=== PATIENT | male | born 1975 | race Hispanic/Latino ===

== ENCOUNTER 2017-08-30 20:03 | Observation (INO) | payer OTHER ==
[2017-08-30] MEDS ORDERED: Nitroglycerin 2% Ointment Foilpak UD TOP STA (21:05)
[2017-08-30] MEDS ORDERED: Nitroglycerin 2% Ointment Foilpak UD TOP ONE (21:12)
--- NOTE | 2017-08-30 21:16 | ED PDOC ---
HPI: Chest Pain Time Seen by Provider: 08/30/17 20:15 Chief Complaint (Nursing): Chest Pain Chief Complaint (Provider): Chest Pain History Per: Patient History/Exam Limitations: no limitations Onset/Duration Of Symptoms: Days (x 1) Current Symptoms Are (Timing): Still Present Additional Complaint(s): is a 42 y/o male with a history of sleep apnea who presents to the ED complaining of left sided, pressure-like chest pain and tightness with associated pain radiating to left arm since yesterday. Patient describes the arm pain as tightness. He denies numbness, shortness of breath, or leg swelling. Patient states the pain got worse over the course of the day. He also had URI symptoms around [place] time that resolved on their own after about 5 days. PMD: None (Uses [facility]) Past Medical History Reviewed: Historical Data, Nursing Documentation, Vital Signs Vital Signs: Last Vital Signs Temp 98.5 F 08/31/17 12:17 Pulse 62 08/31/17 12:17 Resp 14 08/31/17 12:17 BP 131/79 08/31/17 12:17 Pulse Ox 98 08/31/17 12:17 - Medical History PMH: Sleep Apnea Denies: Chronic Kidney Disease - Surgical History Surgical History: No Surg Hx - Family History Family History: States: Hypertension - Social History Current smoker - smoking cessation education provided: No Alcohol: Occasional Drugs: Denies - Home Medications Home Medications: Ambulatory Orders Medication Instructions Recorded No Known Home Med 08/30/17 - Allergies Allergies/Adverse Reactions: Allergies Allergy/AdvReac Type Severity Reaction Status Date / Time No Known Allergies Allergy Verified 08/30/17 20:12 Review of Systems ROS Statement: Except As Marked, All Systems Reviewed And Found Negative Cardiovascular: Positive for: Chest Pain (left sided, pressure-like, tightness with radiation) Respiratory: Negative for: Shortness of Breath Musculoskeletal: Negative for: Leg Pain (swelling) Neurological: Negative for: Numbness Physical Exam - Reviewed Nursing Documentation Reviewed: Yes Vital Signs Reviewed: Yes - Physical Exam Appears: Positive for: Non-toxic, In Acute Distress Head Exam: Positive for: ATRAUMATIC, NORMOCEPHALIC Skin: Positive for: Warm, Dry Eye Exam: Positive for: EOMI, PERRL ENT: Negative for: Pharyngeal Erythema, Tonsillar Exudate Neck: Positive for: Painless ROM, Supple Cardiovascular/Chest: Positive for: Regular Rate, Rhythm, Chest Non Tender. Negative for: Murmur Respiratory: Positive for: Normal Breath Sounds. Negative for: Wheezing Gastrointestinal/Abdominal: Positive for: Soft. Negative for: Tenderness Back: Positive for: Normal Inspection. Negative for: Decreased ROM Extremity: Positive for: Normal ROM. Negative for: Pedal Edema Lymphatic: Negative for: Adenopathy Neurologic/Psych: Positive for: Alert. Negative for: Motor/Sensory Deficits - Laboratory Results Result Diagrams: 08/31/17 07:38 08/31/17 07:38 - ECG O2 Sat by Pulse Oximetry: 95 (RA) Pulse Ox Interpretation: Normal - Radiology X-Ray: Interpreted by Me X-Ray Interpretation: No Acute Disease Medical Decision Making Medical Decision Making: Time: 9:03 Initial Impression: Chest pain, anginal quality Initial Plan: --Patient will be hospitalized to rule out acute coronary syndrome pending ER workup --B Type Natriuretic --CMP --Magnesium --Phosphorous --Troponin I Stat --Troponin I Q8H (x 2) --Urine Dip --D Dimer --PTT --Prothrombin Time --CBC --Chest XR --Ecotrin --Nitro --Contin[employer] Performance Specialist Initial labs and cxr unremarkable. Scribe Attestation: Documented by Blayne Persaud, acting as a scribe for Gayla Mary MD. Provider Scribe Attestation: All medical record entries made by the Scribe were at my direction and personally dictated by me. I have reviewed the chart and agree that the record accurately reflects my personal performance of the history, physical exam, medical decision making, and the department course for this patient. I have also personally directed, reviewed, and agree with the discharge instructions and disposition. Disposition - Clinical Impression Clinical Impression: Anginal pain Discussed With : Bobby Hayes Counseled Patient/Family Regarding: Studies Performed, Diagnosis - Disposition Disposition Time: 21:00 Condition: FAIR - Pt Status Changed To: Hospital Disposition Of: Observation - POA Present On Arrival: None
[2017-08-30 21:17] LABS: BASO # 0.1 K/uL (0.0-0.2); BASO % 0.6 % (0.0-2.0); EOS # 0.1 K/uL (0.0-0.7); EOS % 1.1 % (0.0-4.0); HEMOGLOBIN 13.7 g/dL (12.0-18.0); LYMPH # 3.7 K/uL (1.0-4.3); LYMPH % 33.2 % (20.0-40.0); MEAN CELL VOLUME 84.5 fl (80.0-94.0); MEAN CORPUSCULAR HEMOGLOBIN 26.9 pg (27.0-31.0); MEAN CORPUSCULAR HGB CONC 31.8 g/dL (33.0-37.0); MEAN PLATELET VOLUME 9.6 fl (7.2-11.7); MONO # 0.9 K/uL (0.0-0.8); MONO % 7.7 % (0.0-10.0); NEUT # 6.4 K/uL (1.8-7.0); NEUT % 57.4 % (50.0-75.0); NRBC % 0.1 % (0.0-0.0); RBC 5.09 Mil/uL (4.40-5.90); RED CELL DISTRIBUTION WIDTH 12.6 % (11.5-14.5); WHITE BLOOD COUNT 11.2 K/uL (4.8-10.8)
[2017-08-30 21:28] LABS: PARTIAL THROMBOPLASTIN TIME 32.2 Seconds (25.6-37.1); PROTHROMBIN TIME 11.2 Seconds (9.8-13.1)
[2017-08-30 22:02] LABS: ALB/GLOB RATIO 1.2 (1.0-2.1); ALBUMIN 4.1 g/dL (3.5-5.0); ALT/SGPT 46 U/L (21-72); AST/SGOT 29 U/L (17-59); BLOOD UREA NITROGEN 18 mg/dl (9-20); CALCIUM 9.3 mg/dL (8.4-10.2); GFR AFRICAN-AMERICAN > 60; GFR NON-AFRICAN AMERICAN > 60; MAGNESIUM 1.8 MG/DL (1.6-2.3)
[2017-08-31 08:06] LABS: BASO # 0.1 K/uL (0.0-0.2); BASO % 0.6 % (0.0-2.0); EOS # 0.1 K/uL (0.0-0.7); EOS % 1.5 % (0.0-4.0); HEMOGLOBIN 13.7 g/dL (12.0-18.0); LYMPH # 3.1 K/uL (1.0-4.3); LYMPH % 32.6 % (20.0-40.0); MEAN CELL VOLUME 84.6 fl (80.0-94.0); MEAN CORPUSCULAR HEMOGLOBIN 27.9 pg (27.0-31.0); MEAN PLATELET VOLUME 9.2 fl (7.2-11.7); MONO # 0.8 K/uL (0.0-0.8); MONO % 8.3 % (0.0-10.0); NEUT # 5.4 K/uL (1.8-7.0); NRBC % 0.1 % (0.0-0.0); RBC 4.9 Mil/uL (4.40-5.90); RED CELL DISTRIBUTION WIDTH 12.5 % (11.5-14.5); WHITE BLOOD COUNT 9.4 K/uL (4.8-10.8)
[2017-08-31 08:16] LABS: ALB/GLOB RATIO 1.1 (1.0-2.1); ALBUMIN 3.8 g/dL (3.5-5.0); ALT/SGPT 51 U/L (21-72); AST/SGOT 34 U/L (17-59); BLOOD UREA NITROGEN 16 mg/dl (9-20); CALCIUM 9.3 mg/dL (8.4-10.2); GFR AFRICAN-AMERICAN > 60; GFR NON-AFRICAN AMERICAN > 60
--- NOTE | 2017-08-31 09:35 | RAD ---
HISTORY: chest pain COMPARISON: No prior. TECHNIQUE: Chest PA and lateral FINDINGS: LUNGS: No active pulmonary disease. PLEURA: No significant pleural effusion identified. No pneumothorax apparent. CARDIOVASCULAR: Normal. OSSEOUS STRUCTURES: No significant abnormalities. VISUALIZED UPPER ABDOMEN: Normal. OTHER FINDINGS: None. IMPRESSION: No active disease.
--- NOTE | 2017-08-31 10:52 | CP.PCM.HP ---
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 no f/c, n/v/d. no cough/congestion, trops neg x 2. cardio consult pending. minimal pain at present. Present on Admission - Present on Admission Any Indicators Present on Admission: No Review of Systems - Cardiovascular Cardiovascular: As Per HPI, Chest Pain Past Patient History - Past Medical History & Family History Past Medical History?: Yes - Past Social History Smoking Status: Never Smoked - CARDIAC Hx Cardiac Disorders: No - PULMONARY Hx Sleep Apnea: Yes - NEUROLOGICAL Hx Neurological Disorder: No - HEENT Hx HEENT Problems: No - RENAL Hx Chronic Kidney Disease: No - ENDOCRINE/METABOLIC Hx Endocrine Disorders: No - HEMATOLOGICAL/ONCOLOGICAL Hx Blood Disorders: No Hx AIDS: No Hx Human Immunodeficiency Virus (HIV): No - INTEGUMENTARY Hx Dermatological Problems: No - MUSCULOSKELETAL/RHEUMATOLOGICAL Hx Musculoskeletal Disorders: No Hx Falls: No - GASTROINTESTINAL Hx Gastrointestinal Disorders: No - GENITOURINARY/GYNECOLOGICAL Hx Genitourinary Disorders: No - PSYCHIATRIC Hx Substance Use: No - SURGICAL HISTORY Hx Surgeries: No - ANESTHESIA Hx Anesthesia: No Meds Allergies/Adverse Reactions: Allergies Allergy/AdvReac Type Severity Reaction Status Date / Time No Known Allergies Allergy Verified 08/30/17 20:12 Physical Exam - Constitutional Appears: Well, Non-toxic, No Acute Distress - Head Exam Head Exam: ATRAUMATIC, NORMAL INSPECTION, NORMOCEPHALIC - Eye Exam Eye Exam: EOMI, Normal appearance, PERRL Pupil Exam: NORMAL ACCOMODATION, PERRL - ENT Exam ENT Exam: Mucous Membranes Moist, Normal Exam - Neck Exam Neck exam: Positive for: Normal Inspection - Respiratory Exam Respiratory Exam: Clear to Auscultation Bilateral, NORMAL BREATHING PATTERN - Cardiovascular Exam Cardiovascular Exam: REGULAR RHYTHM, RRR, +S1, +S2 - GI/Abdominal Exam GI & Abdominal Exam: Normal Bowel Sounds, Soft. absent: Tenderness - Extremities Exam Extremities exam: Positive for: full ROM, normal capillary refill, normal inspection, pedal pulses present - Back Exam Back exam: NORMAL INSPECTION - Neurological Exam Neurological exam: Alert, CN II-XII Intact, Normal Gait, Oriented x3, Reflexes Normal - Psychiatric Exam Psychiatric exam: Normal Affect, Normal Mood - Skin Skin Exam: Dry, Intact, Normal Color, Warm Results - Vital Signs Recent Vital Signs: Last Vital Signs Temp 98.2 F 08/31/17 07:59 Pulse 68 08/31/17 09:00 Resp 14 08/31/17 07:59 BP 131/80 08/31/17 07:59 Pulse Ox 99 08/31/17 07:59 - Labs Result Diagrams: 08/31/17 07:38 08/31/17 07:38 Labs: Laboratory Results - last 24 hr 08/30/17 08/30/17 08/30/17 21:12 21:12 21:12 WBC 11.2 H RBC 5.09 Hgb 13.7 Hct 43.0 MCV 84.5 MCH 26.9 L MCHC 31.8 L RDW 12.6 Plt Count 295 MPV 9.6 Neut % (Auto) 57.4 Lymph % (Auto) 33.2 [place] % (Auto) 7.7 Eos % (Auto) 1.1 Baso % (Auto) 0.6 Neut # 6.4 Lymph # 3.7 [place] # 0.9 H Eos # 0.1 Baso # 0.1 PT 11.2 INR 1.0 APTT 32.2 D-Dimer, Quantitative 141 Sodium 141 Potassium 3.9 Chloride 105 Carbon Dioxide 23 Anion Gap 17 BUN 18 Creatinine 1.0 Est GFR ( Amer) > 60 Est GFR (Non-Af Amer) > 60 Random Glucose 87 Calcium 9.3 Phosphorus 3.7 Magnesium 1.8 Total Bilirubin 0.6 AST 29 ALT 46 Alkaline Phosphatase 75 Troponin I < 0.0120 NT-Pro-B Natriuret Pep 30.0 Total Protein 7.5 Albumin 4.1 Globulin 3.5 Albumin/Globulin Ratio 1.2 08/31/17 08/31/17 07:38 07:38 WBC 9.4 RBC 4.90 Hgb 13.7 Hct 41.4 MCV 84.6 MCH 27.9 MCHC 33.0 RDW 12.5 Plt Count 269 MPV 9.2 Neut % (Auto) 57.0 Lymph % (Auto) 32.6 [place] % (Auto) 8.3 Eos % (Auto) 1.5 Baso % (Auto) 0.6 Neut # 5.4 Lymph # 3.1 [place] # 0.8 Eos # 0.1 Baso # 0.1 PT INR APTT D-Dimer, Quantitative Sodium 141 Potassium 3.9 Chloride 104 Carbon Dioxide 27 Anion Gap 14 BUN 16 Creatinine 1.0 Est GFR ( Amer) > 60 Est GFR (Non-Af Amer) > 60 Random Glucose 95 Calcium 9.3 Phosphorus Magnesium Total Bilirubin 0.9 AST 34 ALT 51 Alkaline Phosphatase 66 Troponin I < 0.0120 NT-Pro-B Natriuret Pep Total Protein 7.2 Albumin 3.8 Globulin 3.4 Albumin/Globulin Ratio 1.1 Assessment & Plan (1) Chest pain Assessment and Plan: trops x 3 cardio asa ?? muscular Status: Acute (2) DVT prophylaxis Assessment and Plan: scd nad ae hose ambulation lovenox if admitted over 24h Status: Acute
[2017-08-31 15:47] VITALS: BP 132/80; PULSE 73; RESP 18; TEMP 98.7; O2SAT 99
--- NOTE | 2017-08-31 16:54 | CP.PCM.CON ---
History of Present Illness - History of Present Illness History of Present Illness: Asked to see pt by Bobby Hayes NP for Chest pain x 1 day. Pt states he had chest soreness throughout his left chest which then began in his tricep area. He states that raising his left arm above head, turning his head to right, coughing, and taking deep breath caused pain in his chest. There was no associated palp, dyspnea, lh, dizziness, diaphoresis, n/v/d/c. His symptoms do not increase with ambulation or exertion. Pts ekg reveals no evidence of ischemia, trop are neg x 2. Pts pain has completely resolved. He has no cardiac risk factors. Review of Systems - Constitutional Constitutional: As Per HPI. absent: Anorexia, Chills, Daytime Sleepiness, Excessive Sweating, Fatigue, Fever, Frequent Falls, Headache, Increased Appetite , Lethargy, Malaise, Night Sweats, Snoring, Sleep Apnea, Weight Gain, Weight Loss, Weakness, Other - EENT Eyes: As Per HPI. absent: Blind Spots, Blurred Vision, Change in Vision, Decreased Night Vision, Diplopia, Discharge, Dry Eye, Exophthalmos, Floaters, Irritation, Itchy Eyes, Loss of Peripheral Vision, Pain, Photophobia, Requires Corrective Lenses, Sees Flashes, Spots in Vision, Tunnel Vision, Other Visual Disturbances, Loss of Vision, Other Ears: As Per HPI. absent: Decreased Hearing, Ear Discharge, Ear Pain, Tinnitus , Abnormal Hearing, Disequilibrium, Dizziness, Other Nose/Mouth/Throat: As Per HPI. absent: Epistaxis, Nasal Congestion, Nasal Discharge, Nasal Obstruction, Nasal Trauma, Nose Pain, Post Nasal Drip, Sinus Pain, Sinus Pressure, Bleeding Gums, Change in Voice, Dental Pain, Dry Mouth, Dysphagia, Halitosis, Hoarsness, Lip Swelling, Mouth Lesions, Mouth Pain, Odynophagia, Sore Throat, Throat Swelling, Tongue Swelling, Facial Pain, Neck Pain, Neck Mass, Other - Cardiovascular Cardiovascular: Chest Pain at Rest. absent: As Per HPI, Acrocyanosis, Chest Pain, Chest Pain with Activity, Claudication, Diaphoresis, Dyspnea, Dyspnea on Exertion, Edema, Irregular Heart Rhythm, Pain Radiating to Arm/Neck/Jaw, Leg Edema, Leg Ulcers, Lightheadedness, Orthopnea, Palpitations, Paroxysmal Nocturnal Dyspnea, Pedal Edema, Radiating Pain, Rapid Heart Rate, Slow Heart Rate, Syncope, Other - Respiratory Respiratory: As Per HPI. absent: Cough, Dyspnea, Hemoptysis, Dyspnea on Exertion, Wheezing, Snoring, Stridor, Pain on Inspiration, Chest Congestion, Excessive Mucous Production, Change in Mucous Color, Pain with Coughing, Other - Gastrointestinal Gastrointestinal: As Per HPI. absent: Abdominal Pain, Belching, Bloating, Change in Bowel Habits, Change in Stool Character, Coffee Ground Emesis, Constipation, Cramping, Diarrhea, Dyspepsia, Dysphagia, Early Satiety, Excessive Flatus, Fecal Incontinence, Heartburn, Hematemesis, Hematochezia, Loose Stools, Melena, Nausea, Odynophagia, Temesmus, Vomiting, Other - Genitourinary Genitourinary: As Per HPI. absent: Change in Urinary Stream, Difficulty Urinating, Dysuria, Flank Pain, Hematuria, Pyuria, Nocturia, Urinary Incontinence, Urinary Frequency, Urinary Hesitance, Urinary Urgency, Voiding Freq/Small Amts, Freq UTI, Hx Renal/Bladder Calculi, Hx /Renal Surgery, Bladder Distension, Other - Reproductive: Male Reproductive:Male: As Per HPI - Musculoskeletal Musculoskeletal: As Per HPI, Limited Range of Motion. absent: Abnormal Gait, Arthralgias, Atrophy, Back Pain, Deformity, Joint Swelling, Loss of Height, Muscle Cramps, Muscle Weakness, Myalgias, Neck Pain, Numbness, Radiating Pain into Limb, Stiffness, Tingling, Other - Integumentary Integumentary: As Per HPI. absent: Acne, Alopecia, Bleeding Lesions, Change in Hair, Change in Nails, Change in Pigmentation, Changing Lesions, Dry Skin, Erythema, Furuncle, Hirsutism, Lesions, New Lesions, Non-Healing Lesions, Photosensitivity, Pruritus, Rash, Skin Pain, Skin Ulcer, Sores, Striae, Swelling , Unusual Bruising, Wounds, Jaundice, Other - Neurological Neurological: As Per HPI. absent: Abnormal Gait, Abnormal Hearing, Abnormal Movements, Abnormal Speech, Behavioral Changes, Burning Sensations, Confusion, Convulsions, Disequilibrium, Dizziness, Numbness, Focal Weakness, Frequent Falls , Headaches, Lack of Coordination, Loss of Vision, Memory Loss, Paresthesias, Radicular Pain, Restless Legs, Sensory Deficit, Syncope, Tingling, Tremor, Vertigo, Weakness, Other Visual Disturbances, Other - Psychiatric Psychiatric: As Per HPI. absent: Abnormal Sleep Pattern, Anhedonia, Anxiety, Auditory Hallucinations, Behavioral Changes, Change in Appetite, Change in Libido, Confusion, Depression, Difficulty Concentrating, Hallucinations, Homicidal Ideation, Hopelessness, Irritability, Memory Loss, Mood Swings, Panic Attacks, Paranoia, Suicidal Ideation, Visual Hallucinations, Tactile Hallucinations, Other - Endocrine Endocrine: As Per HPI. absent: Change in Body Appearance, Change in Libido, Cold Intolorance, Deepening of Voice, Excessive Sweating, Fatigue, Flushing, Heat Intolorance, Increase in Ring/Shoe/Hat Size, Palpitations, Polydipsia, Polyphagia, Polyuria, Other - Hematologic/Lymphatic Hematologic: As Per HPI. absent: Easy Bleeding, Easy Bruising, Lymphadenopathy , Other Past Patient History - Infectious Disease Hx of Infectious Diseases: None - Tetanus Immunizations Tetanus Immunization: Unknown - Past Medical History & Family History Past Medical History?: Yes - Past Social History Smoking Status: Never Smoked Chewing Tobacco Use: No Cigar Use: No Alcohol: Occasional Drugs: Denies - CARDIAC Hx Cardiac Disorders: No - PULMONARY Hx Sleep Apnea: Yes - NEUROLOGICAL Hx Neurological Disorder: No - HEENT Hx HEENT Problems: No - RENAL Hx Chronic Kidney Disease: No - ENDOCRINE/METABOLIC Hx Endocrine Disorders: No - HEMATOLOGICAL/ONCOLOGICAL Hx Blood Disorders: No Hx AIDS: No Hx Human Immunodeficiency Virus (HIV): No - INTEGUMENTARY Hx Dermatological Problems: No - MUSCULOSKELETAL/RHEUMATOLOGICAL Hx Musculoskeletal Disorders: No Hx Falls: No - GASTROINTESTINAL Hx Gastrointestinal Disorders: No - GENITOURINARY/GYNECOLOGICAL Hx Genitourinary Disorders: No - PSYCHIATRIC Hx Substance Use: No - SURGICAL HISTORY Hx Surgeries: No - ANESTHESIA Hx Anesthesia: No Meds Allergies/Adverse Reactions: Allergies Allergy/AdvReac Type Severity Reaction Status Date / Time No Known Allergies Allergy Verified 08/30/17 20:12 - Medications Medications: Current Medications Aspirin (Aspirin Chewable) 81 mg PO DAILY [facility] Last Admin: 08/31/17 09:00 Dose: 81 mg Nitroglycerin (Nitrostat Sl Tab) 0.4 mg SL Q5M PRN PRN Reason: cp Physical Exam - Constitutional Appears: Well - Head Exam Head Exam: ATRAUMATIC, NORMAL INSPECTION, NORMOCEPHALIC - Eye Exam Eye Exam: EOMI, Normal appearance, PERRL. absent: Conjunctival injection, Nystagmus, Periorbital swelling, Periorbital tenderness, Scleral icterus Pupil Exam: NORMAL ACCOMODATION, PERRL. absent: Fixed, Irregular, Miosis, Mydriatic, Unequal - ENT Exam ENT Exam: Mucous Membranes Moist, Normal Exam. absent: Mucous Membranes Dry, Normal External Ear Exam, Normal Oropharynx, TM's Normal Bilaterally - Neck Exam Neck exam: Positive for: Normal Inspection. Negative for: Full Rom, Lymphadenopathy, Meningismus, Tenderness, Thyromegaly - Respiratory Exam Respiratory Exam: Clear to Auscultation Bilateral, NORMAL BREATHING PATTERN. absent: Accessory Muscle Use, Chest Wall Tenderness, Decreased Breath Sounds, Prolonged Expiratory Phase, Rales, Rhonchi, Wheezes, Respiratory Distress, Stridor - Cardiovascular Exam Cardiovascular Exam: REGULAR RHYTHM, +S1, +S2. absent: Bradycardia, Tachycardia , Clicks, Diastolic murmur, Gallop, Irregular Rhythm, JVD, RRR, Rubs, +S4, Systolic Murmur - GI/Abdominal Exam GI & Abdominal Exam: Normal Bowel Sounds, Soft. absent: Bruit, Diminished Bowel Sounds, Distended, Firm, Guarding, Hernia, Hyperactive Bowel Sounds, Hypoactive Bowel Sounds, Mass, Organomegaly, Pulsatile Mass, Rebound, Rigid, Tenderness - Rectal Exam Rectal Exam: Deferred - Extremities Exam Extremities exam: Positive for: calf tenderness, normal inspection. Negative for: full ROM, joint swelling, normal capillary refill, pedal edema, tenderness , pedal pulses present - Back Exam Back exam: NORMAL INSPECTION. absent: CVA tenderness (L), CVA tenderness (R), FULL ROM, muscle spasm, paraspinal tenderness, rash noted, tenderness, vertebral tenderness - Neurological Exam Neurological exam: Alert, CN II-XII Intact, Normal Gait, Oriented x3, Reflexes Normal - Psychiatric Exam Psychiatric exam: Normal Affect, Normal Mood - Skin Skin Exam: Dry, Intact, Normal Color, Warm Results - Vital Signs Recent Vital Signs: Last Vital Signs Temp 98.7 F 08/31/17 15:47 Pulse 73 08/31/17 15:47 Resp 18 08/31/17 15:47 BP 132/80 08/31/17 15:47 Pulse Ox 99 08/31/17 15:47 - Labs Result Diagrams: 08/31/17 07:38 08/31/17 07:38 Labs: Laboratory Results - last 24 hr 08/30/17 08/30/17 08/30/17 21:12 21:12 21:12 WBC 11.2 H RBC 5.09 Hgb 13.7 Hct 43.0 MCV 84.5 MCH 26.9 L MCHC 31.8 L RDW 12.6 Plt Count 295 MPV 9.6 Neut % (Auto) 57.4 Lymph % (Auto) 33.2 [place] % (Auto) 7.7 Eos % (Auto) 1.1 Baso % (Auto) 0.6 Neut # 6.4 Lymph # 3.7 [place] # 0.9 H Eos # 0.1 Baso # 0.1 PT 11.2 INR 1.0 APTT 32.2 D-Dimer, Quantitative 141 Sodium 141 Potassium 3.9 Chloride 105 Carbon Dioxide 23 Anion Gap 17 BUN 18 Creatinine 1.0 Est GFR ( Amer) > 60 Est GFR (Non-Af Amer) > 60 Random Glucose 87 Calcium 9.3 Phosphorus 3.7 Magnesium 1.8 Total Bilirubin 0.6 AST 29 ALT 46 Alkaline Phosphatase 75 Troponin I < 0.0120 NT-Pro-B Natriuret Pep 30.0 Total Protein 7.5 Albumin 4.1 Globulin 3.5 Albumin/Globulin Ratio 1.2 08/31/17 08/31/17 07:38 07:38 WBC 9.4 RBC 4.90 Hgb 13.7 Hct 41.4 MCV 84.6 MCH 27.9 MCHC 33.0 RDW 12.5 Plt Count 269 MPV 9.2 Neut % (Auto) 57.0 Lymph % (Auto) 32.6 [place] % (Auto) 8.3 Eos % (Auto) 1.5 Baso % (Auto) 0.6 Neut # 5.4 Lymph # 3.1 [place] # 0.8 Eos # 0.1 Baso # 0.1 PT INR APTT D-Dimer, Quantitative Sodium 141 Potassium 3.9 Chloride 104 Carbon Dioxide 27 Anion Gap 14 BUN 16 Creatinine 1.0 Est GFR ( Amer) > 60 Est GFR (Non-Af Amer) > 60 Random Glucose 95 Calcium 9.3 Phosphorus Magnesium Total Bilirubin 0.9 AST 34 ALT 51 Alkaline Phosphatase 66 Troponin I < 0.0120 NT-Pro-B Natriuret Pep Total Protein 7.2 Albumin 3.8 Globulin 3.4 Albumin/Globulin Ratio 1.1 - EKG Data EKG Interpreted by: Myself EKG shows normal: Sinus rhythm Rate: Normal Assessment & Plan (1) Musculoskeletal chest pain Status: Acute - Assessment and Plan (Free Text) Plan: BASED ON SYMPTOMS AND EXAC FACTORS PT LIKELY HAD MSK ETIOLOGY. NO RISK FACTORS , RULED OUT FOR VT, NO EKG CHANGES. PT MAY BE D/C TO F/U OUT PATIENT. 55 MIN TOTAL CARE TIME.
--- NOTE | 2017-08-31 19:37 | CP.PCM.DIS ---
Provider - Provider Date of Admission: 08/30/17 22:11 Attending physician: Bull Carey MD Time Spent in preparation of Discharge (in minutes): 15 Diagnosis - Discharge Diagnosis (1) Chest pain Status: Acute (2) DVT prophylaxis Status: Acute Hospital Course - Lab Results Lab Results: Most Recent Lab Values WBC 9.4 K/uL (4.8-10.8) 08/31/17 07:38 RBC 4.90 Mil/uL (4.40-5.90) 08/31/17 07:38 Hgb 13.7 g/dL (12.0-18.0) 08/31/17 07:38 Hct 41.4 % (35.0-51.0) 08/31/17 07:38 MCV 84.6 fl (80.0-94.0) 08/31/17 07:38 MCH 27.9 pg (27.0-31.0) 08/31/17 07:38 MCHC 33.0 g/dL (33.0-37.0) 08/31/17 07:38 RDW 12.5 % (11.5-14.5) 08/31/17 07:38 Plt Count 269 K/uL (130-400) 08/31/17 07:38 MPV 9.2 fl (7.2-11.7) 08/31/17 07:38 Neut % (Auto) 57.0 % (50.0-75.0) 08/31/17 07:38 Lymph % (Auto) 32.6 % (20.0-40.0) 08/31/17 07:38 [place] % (Auto) 8.3 % (0.0-10.0) 08/31/17 07:38 Eos % (Auto) 1.5 % (0.0-4.0) 08/31/17 07:38 Baso % (Auto) 0.6 % (0.0-2.0) 08/31/17 07:38 Neut # 5.4 K/uL (1.8-7.0) 08/31/17 07:38 Lymph # 3.1 K/uL (1.0-4.3) 08/31/17 07:38 [place] # 0.8 K/uL (0.0-0.8) 08/31/17 07:38 Eos # 0.1 K/uL (0.0-0.7) 08/31/17 07:38 Baso # 0.1 K/uL (0.0-0.2) 08/31/17 07:38 PT 11.2 Seconds (9.8-13.1) 08/30/17 21:12 INR 1.0 (0.9-1.2) 08/30/17 21:12 APTT 32.2 Seconds (25.6-37.1) 08/30/17 21:12 D-Dimer, Quantitative 141 ng/mlDDU (0-230) 08/30/17 21:12 Sodium 141 mmol/l (132-148) 08/31/17 07:38 Potassium 3.9 MMOL/L (3.6-5.0) 08/31/17 07:38 Chloride 104 mmol/L (98-107) 08/31/17 07:38 Carbon Dioxide 27 mmol/L (22-30) 08/31/17 07:38 Anion Gap 14 (10-20) 08/31/17 07:38 BUN 16 mg/dl (9-20) 08/31/17 07:38 Creatinine 1.0 mg/dl (0.8-1.5) 08/31/17 07:38 Est GFR ( Amer) > 60 08/31/17 07:38 Est GFR (Non-Af Amer) > 60 08/31/17 07:38 Random Glucose 95 mg/dL (75-110) 08/31/17 07:38 Calcium 9.3 mg/dL (8.4-10.2) 08/31/17 07:38 Phosphorus 3.7 mg/dl (2.5-4.5) 08/30/17 21:12 Magnesium 1.8 MG/DL (1.6-2.3) 08/30/17 21:12 Total Bilirubin 0.9 mg/dl (0.2-1.3) 08/31/17 07:38 AST 34 U/L (17-59) 08/31/17 07:38 ALT 51 U/L (21-72) 08/31/17 07:38 Alkaline Phosphatase 66 U/L (38-126) 08/31/17 07:38 Troponin I < 0.0120 ng/mL (0.00-0.120) 08/31/17 15:41 NT-Pro-B Natriuret Pep 30.0 pg/ml (0-450) 08/30/17 21:12 Total Protein 7.2 G/DL (6.3-8.2) 08/31/17 07:38 Albumin 3.8 g/dL (3.5-5.0) 08/31/17 07:38 Globulin 3.4 gm/dL (2.2-3.9) 08/31/17 07:38 Albumin/Globulin Ratio 1.1 (1.0-2.1) 08/31/17 07:38 Discharge Exam - Head Exam Head Exam: ATRAUMATIC, NORMOCEPHALIC Discharge Plan - Follow Up Plan Condition: FAIR Disposition: HOME/ ROUTINE Instructions: Angina (DC), Chest Pain (DC) Additional Instructions: Follow up outpatient with Bobby Hayes in one week. Take one baby aspirin- 81 mg daily. cleared by cardio, rted prn, meds per med rec f[place] dx-m/s cp
== END 2017-08-31 18:15 | disposition home or self-care (01) ==
LOC: H.ER 20:03 → H.ERHOLD 22:11 → H.TEL 23:46
PROVIDERS: ADMIT Family Medicine; ATTEND Family Medicine
DX: R07.9 Chest pain, unspecified (principal); G47.30 Sleep apnea, unspecified; Z82.49 Family history of ischemic heart disease and other diseases of the circulatory system; F17.200 Nicotine dependence, unspecified, uncomplicated
CPT/HCPCS: 36415; 71046; 80053; 83735; 83880; 84100; 84484; 85025; 85378; 85610; 85730; 94660; 99285; G0378